=== PATIENT | male | born 1940 | race Caucasian/White ===

== ENCOUNTER 2017-03-27 16:12 | Emergency (ER) | payer MEDICARE ==
[~2017-03-27 16:12] MED LIST: Sodium Chloride 0.9% 1,000 ML BAG ONE
--- NOTE | 2017-03-27 19:35 | RAD ---
PORTABLE CHEST: Date: 03-27-17 Provided Clinical History: Altered mental status. FINDINGS: Comparison is made with study dated 05-27-15. The cardiomediastinal silhouette is within normal limits. There is no focal consolidation, pleural fl uid, or pneumothorax apparent. IMPRESSION: No evidence for an acute cardiopulmonary process. POS: [facility]
[2017-03-27 19:37] LABS: CKMB 0.6 ng/mL (0-6.6); Troponin I Less than 0.010 ng/mL (< 0.028)
[2017-03-27 19:42] LABS: #Basophils 0.1 thou/uL (0.0-0.2); #Lymphocytes 0.2 thou/uL (1.20-3.40); #Monocytes 0.7 thou/uL (0.11-0.59); #Neutrophils 5.7 thou/uL (1.40-6.50); %Basophils 1.3 % (0.0-1.0); %Lymphocytes 3.5 % (21.0-51.0); %Monocytes 10.2 % (0.0-10.0); %Neutrophils 85.1 % (42.0-75.0); Hemoglobin 14.8 g/dL (14.0-18.0); Mean Corpuscular HGB CONC 32.4 g/dL (32.0-36.0); Mean Corpuscular Volume 98.6 fl (80.0-94.0); Mean Platelet Volume 5.7 fL (7.4-10.4); PLT Morphology Comment Appears Decreased; Platelet Count 81 thou/uL (130-400); RBC Distribution Width 12.1 % (11.5-14.5); Red Blood Cell (RBC) Count 4.64 mill/uL (4.70-6.10); White Blood Cell (WBC) Count 6.6 thou/uL (4.8-10.8)
[2017-03-27 20:22] LABS: ALT (SGPT) 24 U/L (8-55); AST (SGOT) 36 U/L (5-34); Albumin 4.3 g/dL (3.4-4.8); Alkaline Phosphatase 67 U/L (40-150); Anion Gap 18 mmol/L (10-20); BUN (Urea Nitrogen) 12 mg/dL (8.4-25.7); Bilirubin, Total 1.5 mg/dL (0.2-1.2); CK (CPK) 36 U/L (30-200); Calc. Creatinine Clearance 0 mL/min (70-130); Calcium 9.1 mg/dL (7.8-10.44); Carbon Dioxide 28 mmol/L (23-31); Chloride 101 mmol/L (98-107); Estimated GFR-MDRD 90; Globulin 3.6 g/dL (2.4-3.5); Glucose 137 mg/dL (83-110); Potassium 4.4 mmol/L (3.5-5.1); Protein, Total 7.9 g/dL (5.8-8.1); Sodium 143 mmol/L (136-145)
[2017-03-27] MEDS ORDERED: cefTRIAXone\\ROCEPHIN 1 GM VIAL ONE (20:32)
== END 2017-03-27 21:35 | disposition home or self-care (01) ==
LOC: MADERS 16:12
DX: R50.9 Fever, unspecified (principal); F41.9 Anxiety disorder, unspecified; F32.9 Major depressive disorder, single episode, unspecified
CPT/HCPCS: 71010; 80053; 82553; 84443; 84484; 85025; 93005; 96361; 96374; J0696; J7050

== ENCOUNTER 2017-09-30 16:33 | Emergency (ER) | payer MEDICARE ==
[~2017-09-30 16:33] MED LIST changes: +Iopamidol 370 76% 125 ML VIAL FS ONE; -Sodium Chloride 0.9% 1,000 ML BAG ONE; +Sodium Chloride 0.9% 100 ML BAG ONE
[2017-09-30 17:27] LABS: #Basophils 0.1 thou/uL (0.0-0.2); #Lymphocytes 0.5 thou/uL (1.20-3.40); #Monocytes 0.7 thou/uL (0.11-0.59); #Neutrophils 3.7 thou/uL (1.40-6.50); %Basophils 1.2 % (0.0-1.0); %Eosinophils 0.1 % (0.0-10.0); %Lymphocytes 10.6 % (21.0-51.0); %Monocytes 14.5 % (0.0-10.0); %Neutrophils 73.6 % (42.0-75.0); Hemoglobin 13.7 g/dL (14.0-18.0); Mean Corpuscular Hemoglobin 30.1 pg (27.0-31.0); Mean Corpuscular Volume 94.2 fL (78.0-98.0); Mean Platelet Volume 5.2 fL (7.4-10.4); Platelet Count 144 thou/uL (130-400); RBC Distribution Width 11.5 % (11.5-14.5); Red Blood Cell (RBC) Count 4.55 mill/uL (4.70-6.10); White Blood Cell (WBC) Count 5.1 thou/uL (4.8-10.8)
--- NOTE | 2017-09-30 17:46 | RAD ---
PORTABLE CHEST ONE VIEW: 09/30/17 at 4:46 p.m. HISTORY: Dyspnea. FINDINGS: Comparison is made with exam of 03/27/17. The heart size is normal. The aorta is tortuous. The lungs are well expanded without focal areas of c onsolidation, pneumothorax or pleural effusions. IMPRESSION: No radiographic evidence of acute cardiopulmonary process. POS: [facility]
[2017-09-30 17:48] LABS: ALT (SGPT) 12 U/L (8-55); AST (SGOT) 23 U/L (5-34); Albumin 4.2 g/dL (3.4-4.8); Alkaline Phosphatase 41 U/L (40-150); Anion Gap 19 mmol/L (10-20); BUN (Urea Nitrogen) 38 mg/dL (8.4-25.7); Bilirubin, Total 1.2 mg/dL (0.2-1.2); Calc. Creatinine Clearance 0 mL/min (70-130); Calcium 9.8 mg/dL (7.8-10.44); Carbon Dioxide 28 mmol/L (23-31); Chloride 98 mmol/L (98-107); Estimated GFR-MDRD 81; Globulin 3.7 g/dL (2.4-3.5); Glucose 116 mg/dL (83-110); Potassium 4.4 mmol/L (3.5-5.1); Protein, Total 7.9 g/dL (5.8-8.1); Sodium 141 mmol/L (136-145)
[2017-09-30 17:51] LABS: CKMB 1.1 ng/mL (0-6.6); Troponin I 0.012 ng/mL (< 0.028)
--- NOTE | 2017-09-30 22:05 | CT ---
CTA PULMONARY ANGIOGRAM WITH IV CONTRAST AND 3D POSTPROCESSIN09/30/17 HISTORY: Dyspnea. FINDINGS: There is good contrast opacification of the pulmonary artery vasculature and the thoracic aorta. No f illing defects are seen in the well opacified pulmonary artery vasculature to suggest pulmonary embol ism. The right pulmonary artery appears prominent at 2.7 cm. Possibility of pulmonary artery hyperten cass should be considered. There is no evidence of aneurysmal dilatation of the thoracic aorta. No in timal flap is seen to suggest dissection. No pleural or pericardial effusions are seen. No pneumothoraces are identified. There are patchy infi ltrates in the right lower lung. The thoracic esophagus is dilated with an air fluid level. Gallstone is present. Tiny right renal calculus. IMPRESSION: 1. No CT evidence of pulmonary embolism. 2. Patchy infiltrates in the right lower lung suspicious for pneumonia. 3. Cholelithiasis. 4. Tiny right renal calculus. 5. Dilated Esophagus. ? distal obstruction. Endoscopy would be helpful. POS: [facility]
[2017-09-30] MEDS ORDERED: Ondansetron ODT 4 MG TAB ONE (22:28)
[2017-09-30] MEDS ORDERED: cefTRIAXone\\ROCEPHIN 2 GM VIAL ONE (22:28)
[2017-09-30] MEDS ORDERED: Pantoprazole 40 MG VIAL ONE (22:28)
[2017-09-30] MEDS ORDERED: Azithromycin 500 MG VIAL ONE (22:28)
== END 2017-10-01 01:20 | disposition short-term general hospital (02) ==
LOC: MADERS 16:33
DX: J18.9 Pneumonia, unspecified organism (principal); R64 Cachexia; F03.90 Unspecified dementia, unspecified severity, without behavioral disturbance, psychotic disturbance, mood disturbance, and anxiety; F41.9 Anxiety disorder, unspecified; F32.9 Major depressive disorder, single episode, unspecified; F29 Unspecified psychosis not due to a substance or known physiological condition
CPT/HCPCS: 71045; 71275; 80053; 82553; 83880; 84484; 85025; 85379; 93005; 96365; 96367; 96375; C9113; J0456; J0696; J7050; Q0162